=== PATIENT | female | born 1965 | race Caucasian/White ===

== ENCOUNTER → 2017-01-31 | Outpatient (CLI) | payer OTHER | LOC: FIMAGING 11:42 | PROVIDERS: ATTEND Naturopath | DX: D25.2 Subserosal leiomyoma of uterus (principal); N83.291 Other ovarian cyst, right side; N83.292 Other ovarian cyst, left side ==

== ENCOUNTER → 2017-02-19 | Outpatient (CLI) | payer OTHER | LOC: FIMAGING 10:17 | PROVIDERS: ATTEND Naturopath | DX: Z13.820 Encounter for screening for osteoporosis (principal); M85.80 Other specified disorders of bone density and structure, unspecified site ==

== ENCOUNTER → 2019-03-31 | Outpatient (CLI) | payer OTHER | LOC: FIMAGING 14:20 | PROVIDERS: ATTEND Surgery | DX: C50.811 Malignant neoplasm of overlapping sites of right female breast (principal) ==